=== PATIENT | female | born 1965 | race Caucasian/White ===

== ENCOUNTER 2024-08-26 10:54 | Inpatient (IN) | payer MEDICARE, SELFPAY ==
[2024-08-26 12:15] LABS: ALT (SGPT) 14 U/L (8-55); AST (SGOT) 32 U/L (5-34); Albumin 3.4 g/dL (3.5-5.0); Alkaline Phosphatase 101 U/L (40-110); Anion Gap 11 mmol/L (10-20); BUN (Urea Nitrogen) 13 mg/dL (9.8-20.1); Bilirubin, Total 0.7 mg/dL (0.2-1.2); Calc. Creatinine Clearance 0 mL/min (70-130); Calcium 8.6 mg/dL (7.8-10.44); Carbon Dioxide 20 mmol/L (22-29); Chloride 104 mmol/L (98-107); Estimated GFR 96; Globulin 3.3 g/dL (2.4-3.5); Glucose 126 mg/dL (70-105); Protein, Total 6.7 g/dL (6.0-8.3); Sodium 130 mmol/L (136-145)
[2024-08-26 12:25] LABS: Platelet Adequacy Comment Platelets Decreased; Polychromasia SLIGHT = 2-3 cells HPF (0-2)
[2024-08-26 12:26] LABS: #Basophils Less than 0.03 10x3/uL (0.0-0.2); #Eosinophils Less than 0.03 10x3/uL (0.0-0.7); %Basophils 0.6 % (0.0-1.0); %Eosinophils 0.3 % (0.0-10.0); %Lymphocytes 21.1 % (21.0-51.0); %Monocytes 6.9 % (0.0-10.0); %Neutrophils 70.5 % (42.0-75.0); Hematocrit 25.5 % (36.0-47.0); Hemoglobin 8.6 g/dL (12.0-16.0); Mean Corpuscular HGB CONC 34.3 g/dL (32.0-36.0); Mean Corpuscular Hemoglobin 31.7 pg (27.0-31.0); Mean Corpuscular Volume 92.6 fL (78.0-98.0); Mean Platelet Volume 10.2 fL (7.4-10.4); Platelet Count 69 10x3/uL (130-400); RBC Distribution Width 14.3 % (11.5-14.5); Red Blood Cell (RBC) Count 2.71 mill/uL (4.20-5.40)
[2024-08-26] MEDS ORDERED: Sodium Chloride 0.9% 1,000 ML IV SCH (12:30)
[2024-08-26] MEDS ORDERED: Morphine 2 MG/ML VIAL ONE (12:55)
[2024-08-26] MEDS ORDERED: Ondansetron PF 4 MG/2 ML Vial ONE (12:55)
[2024-08-26] MEDS ORDERED: CEFAZOLIN 2 GM in Sodium Chloride 0.9% 100 ML IVPB SCH (13:45)
[2024-08-26] MEDS: Ketorolac Tromethamine 30 MG (1 mL) VIAL IVP SCH (14:22)
[2024-08-26] MEDS: Acetaminophen 325 MG TAB PO SCH (14:23)
[2024-08-26] MEDS: TETANUS, DIPHTHERIA TOX,ADULT (TDVAX) 0.5 ML VIAL IM ONE (14:24)
[2024-08-26] MEDS: traMADol HCl 50 MG TAB PO PRN (14:29)
[2024-08-26] MEDS ORDERED: Docusate 100 MG CAP PO PRN (15:21)
[2024-08-26 15:51] LABS: Troponin I Less than 0.010 ng/mL (< 0.028)
[2024-08-26] MEDS: traMADol HCl 50 MG TAB PO SCH (17:24)
[2024-08-26] MEDS: Morphine 2 MG/ML VIAL SLOW IVP PRN (17:33)
[2024-08-26 17:50] LABS: Bacteria/HPF None Seen HPF (None Seen); Bilirubin Negative (Negative); Blood, Urine 1+ (Negative); CAUTI Indications for Culture Alt mental st,lethar; Clarity Clear (Clear); Glucose, Urine (Dipstick) Normal (Negative); Ketone, Urine Negative (Negative); Leukocyte Negative Leu/uL (Negative); Nitrite Negative (Negative); Protein, Urine (Dipstick) 10 mg/dL (Neg-Trace); RBC/HPF 21-50 HPF (0-3); Specific Gravity, Urine 1.017 (1.002-1.036); Squamous Epithelial 0-3 HPF (0-3); Urobilinogen Normal mg/dL (Less than 2); WBC/HPF 0-3 HPF (0-3); pH, Urine 7.5 (5.0-9.0)
[2024-08-26 17:57] LABS: Urine Culture Reflex No No
[2024-08-26] MEDS ORDERED: Ketorolac Tromethamine 30 MG (1 mL) VIAL IVP SCH (21:00)
[2024-08-26] MEDS: Famotidine 20 MG TAB PO SCH (21:53)
[2024-08-26] MEDS: Docusate 100 MG CAP PO SCH (21:53)
[2024-08-26] MEDS: Gabapentin 400 MG CAP PO SCH (21:54)
[2024-08-26] MEDS: QUEtiapine 25 MG TAB PO SCH (21:54)
[2024-08-26] MEDS: Atorvastatin Calcium 40 MG TAB PO SCH (21:54)
[2024-08-26] MEDS: Methocarbamol 500 MG TAB PO SCH (21:54)
[2024-08-26] MEDS: Senokot S 8.6-50 MG TAB PO SCH (21:56)
[2024-08-27 05:47] LABS: #Basophils Less than 0.03 10x3/uL (0.0-0.2); %Basophils 0.7 % (0.0-1.0); %Eosinophils 5.9 % (0.0-10.0); %Monocytes 11.2 % (0.0-10.0); %Neutrophils 47.5 % (42.0-75.0); Hematocrit 27.8 % (36.0-47.0); Hemoglobin 9.4 g/dL (12.0-16.0); Mean Corpuscular HGB CONC 33.8 g/dL (32.0-36.0); Mean Corpuscular Hemoglobin 31.8 pg (27.0-31.0); Mean Corpuscular Volume 93.9 fL (78.0-98.0); Mean Platelet Volume 10.8 fL (7.4-10.4); Platelet Count 64 10x3/uL (130-400); RBC Distribution Width 14.6 % (11.5-14.5); Red Blood Cell (RBC) Count 2.96 mill/uL (4.20-5.40)
[2024-08-27 05:52] LABS: INR-International Normal Ratio 1.5; PTT 41.2 sec (22.9-36.1); Prothrombin Time 17.9 sec (12.0-14.7)
[2024-08-27 06:44] LABS: Anion Gap 12 mmol/L (10-20); BUN (Urea Nitrogen) 12 mg/dL (9.8-20.1); Calc. Creatinine Clearance 87 mL/min (70-130); Calcium 8.2 mg/dL (7.8-10.44); Carbon Dioxide 20 mmol/L (22-29); Chloride 105 mmol/L (98-107); Estimated GFR 93; Glucose 103 mg/dL (70-105); Potassium 4.2 mmol/L (3.5-5.1); Sodium 133 mmol/L (136-145)
[2024-08-27] MEDS: Metoprolol Succinate XL 50 MG ER.TAB PO SCH (09:33)
[2024-08-27] MEDS ORDERED: PROPOFOL 20 ML ONE (11:06)
[2024-08-27] MEDS ORDERED: CEFAZOLIN 2 GM VIAL ONE (11:18)
[2024-08-27] MEDS ORDERED: Midazolam HCl 2 mg/2 ml Vial ONE (11:18)
[2024-08-27] MEDS ORDERED: Vancomycin 1 GM/200 ML (FROZEN) BAG ONE (11:18)
[2024-08-27] MEDS ORDERED: Lidocaine 1% PF 5 ML VIAL ONE (11:39)
[2024-08-27] MEDS ORDERED: Rocuronium Bromide 10 MG/ML (10ML VIAL) ONE (11:39)
[2024-08-27] MEDS ORDERED: ePHEDrine Sulfate 50 MG/10 ML VIAL ONE (11:41)
[2024-08-27] MEDS ORDERED: SUGAMMADEX SODIUM 200 MG/2 ML VIAL ONE (12:25)
[2024-08-27] MEDS ORDERED: fentaNYL 50 mcg/mL 1 mL Vial ONE (12:53)
[2024-08-27] MEDS ORDERED: HYDROmorphone 0.5 MG/0.5 ML SYRINGE ONE (13:00)
[2024-08-27] MEDS: CEFAZOLIN 2 GM in Sodium Chloride 0.9% 100 ML IVPB SCH (20:21)
[2024-08-28 05:34] LABS: #Basophils 0.03 10x3/uL (0.0-0.2); %Basophils 0.9 % (0.0-1.0); %Lymphocytes 32.5 % (21.0-51.0); %Monocytes 12.7 % (0.0-10.0); Hematocrit 21.6 % (36.0-47.0); Hemoglobin 7.1 g/dL (12.0-16.0); Mean Corpuscular HGB CONC 32.9 g/dL (32.0-36.0); Mean Corpuscular Hemoglobin 31.1 pg (27.0-31.0); Mean Corpuscular Volume 94.7 fL (78.0-98.0); Mean Platelet Volume 10.2 fL (7.4-10.4); Platelet Count 73 10x3/uL (130-400); RBC Distribution Width 14.8 % (11.5-14.5); Red Blood Cell (RBC) Count 2.28 mill/uL (4.20-5.40)
[2024-08-28] MEDS: HYDROcodone/Acetaminophen 5/325 mg Tablet PO PRN (10:56)
[2024-08-28 16:16] LABS: Hematocrit 22.6 % (36.0-47.0); Hemoglobin 7.7 g/dL (12.0-16.0)
[2024-08-29] MEDS: tiZANidine HCl 4 MG TAB PO SCH (10:55)
[2024-08-29] MEDS: Pantoprazole 40 MG VIAL IVP SCH (12:03)
[2024-08-30 06:32] LABS: #Basophils Less than 0.03 10x3/uL (0.0-0.2); %Basophils 0.6 % (0.0-1.0); %Eosinophils 4.4 % (0.0-10.0); %Lymphocytes 41.1 % (21.0-51.0); %Monocytes 11.1 % (0.0-10.0); %Neutrophils 41.9 % (42.0-75.0); Hematocrit 20.9 % (36.0-47.0); Hemoglobin 6.8 g/dL (12.0-16.0); Mean Corpuscular HGB CONC 32.5 g/dL (32.0-36.0); Mean Corpuscular Hemoglobin 31.1 pg (27.0-31.0); Mean Corpuscular Volume 95.4 fL (78.0-98.0); Mean Platelet Volume 10.7 fL (7.4-10.4); Platelet Count 97 10x3/uL (130-400); RBC Distribution Width 15.1 % (11.5-14.5); Red Blood Cell (RBC) Count 2.19 mill/uL (4.20-5.40)
[2024-08-30] MEDS ORDERED: Bupivacaine PF 0.5% 30 ML VIAL ONE (06:39)
[2024-08-30] MEDS ORDERED: Glucagon 1 MG/ML KIT ONE (06:39)
[2024-08-30] MEDS ORDERED: EPINEPHrine 1 MG/ML VIAL ONE (06:39)
[2024-08-30] MEDS ORDERED: Ondansetron PF 4 MG/2 ML Vial ONE (07:10)
[2024-08-30] MEDS ORDERED: Glycopyrrolate 0.2 MG/ML 5 ML SYRINGE ONE (07:10)
[2024-08-30] MEDS ORDERED: Midazolam HCl 2 mg/2 ml Vial ONE (07:10)
[2024-08-30] MEDS ORDERED: PROPOFOL 20 ML ONE (07:10)
[2024-08-30] MEDS ORDERED: fentaNYL 50 mcg/mL 1 mL Vial ONE (07:10)
[2024-08-30] MEDS ORDERED: Lidocaine 1% PF 5 ML VIAL ONE (07:10)
[2024-08-30] MEDS ORDERED: Rocuronium Bromide 10 MG/ML (10ML VIAL) ONE (07:10)
[2024-08-30] MEDS ORDERED: Dexamethasone 20 MG/5 ML VIAL ONE (07:10)
[2024-08-30] MEDS ORDERED: PHENYLEPHRINE-NS 100 MCG/ML 10 ML SYRINGE ONE (07:10)
[2024-08-30] MEDS ORDERED: ePHEDrine Sulfate 50 MG/10 ML VIAL ONE (07:15)
[2024-08-30] MEDS ORDERED: CEFAZOLIN 2 GM VIAL ONE (07:29)
[2024-08-30] MEDS ORDERED: Etomidate 40 MG (20 mL) VIAL ONE (07:41)
[2024-08-30] MEDS ORDERED: Sodium Chloride 0.9% 100 ML ONE (08:04)
[2024-08-30] MEDS ORDERED: Labetalol HCl 100 MG/20 ML VIAL ONE (08:20)
[2024-08-30] MEDS ORDERED: SUGAMMADEX SODIUM 200 MG/2 ML VIAL ONE (08:23)
[2024-08-30] MEDS ORDERED: Acetaminophen 325 MG TAB PO SCH (09:00)
[2024-08-30] MEDS ORDERED: Enoxaparin 30 MG (0.3 mL) SYRINGE SC SCH (09:00)
[2024-08-30] MEDS ORDERED: Pantoprazole 40 MG VIAL IVP SCH (09:00)
[2024-08-30] MEDS: Acetaminophen 500 MG TAB PO SCH (09:32)
[2024-08-30] MEDS: Enoxaparin 40 MG (0.4 mL) SYRINGE SC SCH (09:35)
[2024-08-30] MEDS: Aspirin 81 mg Enteric Coated Tablet PO SCH (09:36)
[2024-08-30] MEDS: Clopidogrel Bisulfate 75 MG TAB PO SCH (09:36)
[2024-08-30] MEDS: Pantoprazole 40 MG DR.TAB PO SCH ×2 (09:36→12:34)
[2024-08-30] MEDS: Morphine 2 MG/ML VIAL SLOW IVP PRN ×2 (09:44→21:59)
[2024-08-30] MEDS ORDERED: CEFAZOLIN 2 GM in Sodium Chloride 0.9% 100 ML IVPB SCH (16:15)
[2024-08-30 18:49] LABS: #Basophils Less than 0.03 10x3/uL (0.0-0.2); #Eosinophils Less than 0.03 10x3/uL (0.0-0.7); %Basophils 0.4 % (0.0-1.0); %Lymphocytes 16.2 % (21.0-51.0); Hematocrit 22.4 % (36.0-47.0); Hemoglobin 7.4 g/dL (12.0-16.0); Mean Corpuscular Hemoglobin 29.5 pg (27.0-31.0); Mean Corpuscular Volume 89.2 fL (78.0-98.0); Mean Platelet Volume 10.4 fL (7.4-10.4); Platelet Count 117 10x3/uL (130-400); RBC Distribution Width 21.7 % (11.5-14.5); Red Blood Cell (RBC) Count 2.51 mill/uL (4.20-5.40)
[2024-08-30] MEDS: traMADol HCl 50 MG TAB PO PRN (20:13)
[2024-08-30] MEDS: Simethicone Chewable 80 MG TAB PO PRN (21:59)
[2024-08-31] MEDS: Ibuprofen 600 MG TAB PO PRN (04:05)
[2024-08-31] MEDS: Morphine 2 MG/ML VIAL SLOW IVP SCH (04:27)
[2024-08-31 05:50] LABS: #Basophils Less than 0.03 10x3/uL (0.0-0.2); %Basophils 0.3 % (0.0-1.0); %Eosinophils 0.7 % (0.0-10.0); %Lymphocytes 26.1 % (21.0-51.0); %Monocytes 8.5 % (0.0-10.0); %Neutrophils 63.7 % (42.0-75.0); Hematocrit 17.9 % (36.0-47.0); Mean Corpuscular HGB CONC 33.5 g/dL (32.0-36.0); Mean Corpuscular Hemoglobin 30.2 pg (27.0-31.0); Mean Corpuscular Volume 89.9 fL (78.0-98.0); Mean Platelet Volume 10.9 fL (7.4-10.4); Platelet Count 105 10x3/uL (130-400); RBC Distribution Width 21.5 % (11.5-14.5); Red Blood Cell (RBC) Count 1.99 mill/uL (4.20-5.40)
[2024-08-31 06:01] LABS: ALT (SGPT) 8 U/L (8-55); AST (SGOT) 22 U/L (5-34); Albumin 2.8 g/dL (3.5-5.0); Alkaline Phosphatase 90 U/L (40-110); Anion Gap 12 mmol/L (10-20); BUN (Urea Nitrogen) 31 mg/dL (9.8-20.1); Bilirubin, Total 0.6 mg/dL (0.2-1.2); Calc. Creatinine Clearance 85 mL/min (70-130); Carbon Dioxide 19 mmol/L (22-29); Chloride 108 mmol/L (98-107); Estimated GFR 90; Globulin 2.8 g/dL (2.4-3.5); Glucose 146 mg/dL (70-105); Potassium 4.6 mmol/L (3.5-5.1); Protein, Total 5.6 g/dL (6.0-8.3); Sodium 134 mmol/L (136-145)
[2024-08-31] MEDS: oxyCODONE 5 MG TAB PO PRN (09:53)
[2024-08-31] MEDS ORDERED: SUGAMMADEX SODIUM 200 MG/2 ML VIAL ONE (13:24)
[2024-08-31] MEDS ORDERED: Fentanyl 250 MCG/5 ML VIAL ONE (13:24)
[2024-08-31] MEDS ORDERED: PROPOFOL 20 ML ONE (13:24)
[2024-08-31] MEDS ORDERED: Midazolam HCl 2 mg/2 ml Vial ONE (13:24)
[2024-08-31] MEDS ORDERED: Rocuronium Bromide 10 MG/ML (10ML VIAL) ONE (13:24)
[2024-08-31] MEDS ORDERED: Lidocaine 2% PF 5 ML VIAL ONE (13:24)
[2024-08-31] MEDS ORDERED: ePHEDrine Sulfate 50 MG/10 ML VIAL ONE (13:25)
[2024-08-31] MEDS ORDERED: PHENYLEPHRINE-NS 100 MCG/ML 10 ML SYRINGE ONE (13:32)
[2024-08-31] MEDS ORDERED: Vasopressin 20 UNITS/ML VIAL ONE (13:35)
[2024-08-31] MEDS ORDERED: Albumin 5% 250 ML ONE (13:48)
[2024-08-31] MEDS ORDERED: Promethazine HCl 25 MG/ML VIAL IM PRN (13:49)
[2024-08-31] MEDS ORDERED: Ondansetron HCl/PF 4 MG/2 ML Vial IVP PRN (13:49)
[2024-08-31] MEDS ORDERED: HYDROmorphone 2 MG/ML VIAL SLOW IVP PRN (13:49)
[2024-08-31] MEDS ORDERED: SUCCINYLCHOLINE/SOD CL,ISO/PF 200 MG/10 ML SYRINGE FS ONE (14:16)
[2024-08-31] MEDS ORDERED: KETAMINE 100 MG/ML (5ML VIAL) ONE (14:41)
[2024-08-31] MEDS ORDERED: Iopamidol-370 76% 500 ML MDV (1 ML CHARGE) ONE (15:10)
[2024-08-31] MEDS ORDERED: EPINEPHrine 1 MG/ML VIAL ONE (15:23)
[2024-08-31] MEDS ORDERED: Bupivacaine 0.25% HCL 30 ML VIAL ONE (15:23)
[2024-08-31] MEDS ORDERED: Dexamethasone 20 MG/5 ML VIAL ONE (16:18)
[2024-08-31] MEDS ORDERED: Ondansetron PF 4 MG/2 ML Vial ONE (16:18)
[2024-08-31 17:37] LABS: #Basophils 0.04 10x3/uL (0.0-0.2); %Basophils 0.6 % (0.0-1.0); %Eosinophils 1.6 % (0.0-10.0); %Lymphocytes 20.5 % (21.0-51.0); %Monocytes 8.1 % (0.0-10.0); %Neutrophils 67.5 % (42.0-75.0); Hematocrit 20.2 % (36.0-47.0); Mean Corpuscular HGB CONC 34.7 g/dL (32.0-36.0); Mean Corpuscular Hemoglobin 31.1 pg (27.0-31.0); Mean Corpuscular Volume 89.8 fL (78.0-98.0); Mean Platelet Volume 10.6 fL (7.4-10.4); Platelet Count 108 10x3/uL (130-400); RBC Distribution Width 17.2 % (11.5-14.5); Red Blood Cell (RBC) Count 2.25 mill/uL (4.20-5.40)
[2024-08-31 18:10] LABS: Anisocytosis SLIGHT = 6-15 cells HPF (0-5); Band 8 % (5-11); Burr Cells SLIGHT = 2-5 cells HPF (0-1); Lymphocytes 17 % (21-51); Monocytes 4 % (0-10); Neutrophil 69 % (42-75); Ovalocytes SLIGHT = 2-5 cells HPF (0-1); Platelet Adequacy Comment Platelets Decreased; Polychromasia SLIGHT = 2-3 cells HPF (0-2); Smudge Cells 15.8 %; Tear Drops SLIGHT = 2-5 cells HPF (0-1)
[2024-08-31] MEDS ORDERED: Ondansetron PF 4 MG/2 ML Vial IVP PRN (18:36)
[2024-08-31] MEDS: Morphine 2 MG/ML VIAL SLOW IVP PRN (18:41)
[2024-08-31 18:46] LABS: Anion Gap 13 mmol/L (10-20); BUN (Urea Nitrogen) 32 mg/dL (9.8-20.1); Calc. Creatinine Clearance 54 mL/min (70-130); Calcium 7.5 mg/dL (7.8-10.44); Carbon Dioxide 16 mmol/L (22-29); Chloride 110 mmol/L (98-107); Estimated GFR 53; Glucose 146 mg/dL (70-105); Potassium 4.1 mmol/L (3.5-5.1); Sodium 135 mmol/L (136-145)
[2024-08-31 23:20] LABS: Hemoglobin 7.3 g/dL (12.0-16.0); Platelet Count 101 10x3/uL (130-400)
[2024-08-31] MEDS: Albumin 25% 25 GM (100 mL) BOT IVPB SCH (23:53)
[2024-09-01 00:03] LABS: Anion Gap 13 mmol/L (10-20); BUN (Urea Nitrogen) 35 mg/dL (9.8-20.1); Calc. Creatinine Clearance 56 mL/min (70-130); Calcium 7.8 mg/dL (7.8-10.44); Carbon Dioxide 17 mmol/L (22-29); Chloride 108 mmol/L (98-107); Estimated GFR 55; Glucose 222 mg/dL (70-105); Potassium 5.4 mmol/L (3.5-5.1); Sodium 133 mmol/L (136-145)
[2024-09-01] MEDS: Calcium Chloride 13.6 MEQ in Sodium Chloride 0.9% 100 ML IVPB SCH (00:48)
[2024-09-01] MEDS: Sodium Bicarb 50 MEQ/50 ML Abboject 8.4% SYRINGE IVP SCH (03:42)
[2024-09-01 05:04] LABS: #Basophils Less than 0.03 10x3/uL (0.0-0.2); #Eosinophils Less than 0.03 10x3/uL (0.0-0.7); %Basophils 0.2 % (0.0-1.0); %Lymphocytes 14.9 % (21.0-51.0); %Monocytes 7.2 % (0.0-10.0); %Neutrophils 77.1 % (42.0-75.0); Hematocrit 22.2 % (36.0-47.0); Hemoglobin 7.8 g/dL (12.0-16.0); Mean Corpuscular HGB CONC 35.1 g/dL (32.0-36.0); Mean Corpuscular Hemoglobin 30.7 pg (27.0-31.0); Mean Corpuscular Volume 87.4 fL (78.0-98.0); Platelet Count 85 10x3/uL (130-400); RBC Distribution Width 16.7 % (11.5-14.5); Red Blood Cell (RBC) Count 2.54 mill/uL (4.20-5.40)
[2024-09-01 05:23] LABS: ALT (SGPT) 11 U/L (8-55); AST (SGOT) 31 U/L (5-34); Albumin 3.3 g/dL (3.5-5.0); Alkaline Phosphatase 79 U/L (40-110); Anion Gap 11 mmol/L (10-20); BUN (Urea Nitrogen) 31 mg/dL (9.8-20.1); Bilirubin, Total 1.2 mg/dL (0.2-1.2); Calc. Creatinine Clearance 72 mL/min (70-130); Calcium 8.9 mg/dL (7.8-10.44); Carbon Dioxide 22 mmol/L (22-29); Chloride 109 mmol/L (98-107); Estimated GFR 69; Globulin 2.8 g/dL (2.4-3.5); Glucose 181 mg/dL (70-105); Protein, Total 6.1 g/dL (6.0-8.3); Sodium 137 mmol/L (136-145)
[2024-09-01] MEDS: Ferrous Sulfate 325 MG TAB PO SCH (07:55)
[2024-09-01] MEDS: Ascorbic Acid 500 mg Chewable Tablet PO SCH (07:55)
[2024-09-01 12:50] LABS: Hematocrit 21.1 % (36.0-47.0); Hemoglobin 7.4 g/dL (12.0-16.0)
[2024-09-01 13:46] VITALS: BMI 22.9
[2024-09-01] MEDS: Morphine 2 MG/ML VIAL SLOW IVP PRN (14:19)
[2024-09-01 18:52] LABS: Hematocrit 20.3 % (36.0-47.0); Mean Corpuscular HGB CONC 34.5 g/dL (32.0-36.0); Mean Corpuscular Volume 89.8 fL (78.0-98.0); Platelet Count 103 10x3/uL (130-400); RBC Distribution Width 18.1 % (11.5-14.5); Red Blood Cell (RBC) Count 2.26 mill/uL (4.20-5.40)
[2024-09-01 23:36] LABS: Hematocrit 20.6 % (36.0-47.0); Hemoglobin 6.9 g/dL (12.0-16.0); Mean Corpuscular HGB CONC 33.5 g/dL (32.0-36.0); Mean Corpuscular Hemoglobin 30.4 pg (27.0-31.0); Mean Corpuscular Volume 90.7 fL (78.0-98.0); Mean Platelet Volume 10.4 fL (7.4-10.4); Platelet Count 114 10x3/uL (130-400); RBC Distribution Width 18.2 % (11.5-14.5); Red Blood Cell (RBC) Count 2.27 mill/uL (4.20-5.40)
[2024-09-02 08:08] LABS: #Basophils 0.03 10x3/uL (0.0-0.2); %Basophils 0.5 % (0.0-1.0); %Eosinophils 1.7 % (0.0-10.0); %Monocytes 7.5 % (0.0-10.0); %Neutrophils 62.3 % (42.0-75.0); Hematocrit 26.3 % (36.0-47.0); Hemoglobin 8.7 g/dL (12.0-16.0); Mean Corpuscular HGB CONC 33.1 g/dL (32.0-36.0); Mean Corpuscular Hemoglobin 30.4 pg (27.0-31.0); Mean Platelet Volume 10.3 fL (7.4-10.4); Platelet Count 122 10x3/uL (130-400); RBC Distribution Width 18.3 % (11.5-14.5); Red Blood Cell (RBC) Count 2.86 mill/uL (4.20-5.40)
[2024-09-02 08:17] LABS: INR-International Normal Ratio 1.3
[2024-09-02 08:18] LABS: PTT 38.3 sec (22.9-36.1)
[2024-09-03 02:38] LABS: #Basophils 0.03 10x3/uL (0.0-0.2); %Basophils 0.5 % (0.0-1.0); %Eosinophils 2.9 % (0.0-10.0); %Lymphocytes 29.9 % (21.0-51.0); %Monocytes 8.1 % (0.0-10.0); Hematocrit 27.2 % (36.0-47.0); Mean Corpuscular HGB CONC 33.1 g/dL (32.0-36.0); Mean Corpuscular Hemoglobin 30.5 pg (27.0-31.0); Mean Corpuscular Volume 92.2 fL (78.0-98.0); Mean Platelet Volume 9.9 fL (7.4-10.4); Platelet Count 127 10x3/uL (130-400); RBC Distribution Width 18.1 % (11.5-14.5); Red Blood Cell (RBC) Count 2.95 mill/uL (4.20-5.40)
[2024-09-03 02:45] LABS: Anion Gap 10 mmol/L (10-20); BUN (Urea Nitrogen) 19 mg/dL (9.8-20.1); Calc. Creatinine Clearance 94 mL/min (70-130); Calcium 8.7 mg/dL (7.8-10.44); Carbon Dioxide 22 mmol/L (22-29); Chloride 109 mmol/L (98-107); Estimated GFR 91; Glucose 99 mg/dL (70-105); Potassium 4.3 mmol/L (3.5-5.1); Sodium 137 mmol/L (136-145)
[2024-09-03] MEDS: Enoxaparin 30 MG (0.3 mL) SYRINGE SC SCH (09:16)
[2024-09-04 05:38] LABS: #Basophils Less than 0.03 10x3/uL (0.0-0.2); %Basophils 0.4 % (0.0-1.0); %Eosinophils 3.2 % (0.0-10.0); %Lymphocytes 29.9 % (21.0-51.0); %Monocytes 7.2 % (0.0-10.0); Hematocrit 28.5 % (36.0-47.0); Hemoglobin 9.4 g/dL (12.0-16.0); Mean Corpuscular Hemoglobin 30.4 pg (27.0-31.0); Mean Corpuscular Volume 92.2 fL (78.0-98.0); Mean Platelet Volume 9.7 fL (7.4-10.4); Platelet Count 135 10x3/uL (130-400); RBC Distribution Width 17.2 % (11.5-14.5); Red Blood Cell (RBC) Count 3.09 mill/uL (4.20-5.40)
[2024-09-04 05:52] LABS: Anion Gap 11 mmol/L (10-20); BUN (Urea Nitrogen) 17 mg/dL (9.8-20.1); Calc. Creatinine Clearance 107 mL/min (70-130); Calcium 8.7 mg/dL (7.8-10.44); Carbon Dioxide 23 mmol/L (22-29); Chloride 105 mmol/L (98-107); Estimated GFR 101; Glucose 111 mg/dL (70-105); Potassium 4.1 mmol/L (3.5-5.1); Sodium 135 mmol/L (136-145)
[2024-09-04] MEDS: Ondansetron ODT 4 MG TAB PO PRN (10:45)
[2024-09-06 05:53] LABS: #Basophils 0.03 10x3/uL (0.0-0.2); %Basophils 0.6 % (0.0-1.0); %Eosinophils 3.5 % (0.0-10.0); %Monocytes 7.6 % (0.0-10.0); %Neutrophils 60.9 % (42.0-75.0); Hematocrit 27.9 % (36.0-47.0); Hemoglobin 9.3 g/dL (12.0-16.0); Mean Corpuscular HGB CONC 33.3 g/dL (32.0-36.0); Mean Corpuscular Hemoglobin 30.2 pg (27.0-31.0); Mean Corpuscular Volume 90.6 fL (78.0-98.0); Mean Platelet Volume 9.6 fL (7.4-10.4); Platelet Count 122 10x3/uL (130-400); RBC Distribution Width 16.1 % (11.5-14.5); Red Blood Cell (RBC) Count 3.08 mill/uL (4.20-5.40)
[2024-09-06 06:04] LABS: Anion Gap 11 mmol/L (10-20); BUN (Urea Nitrogen) 14 mg/dL (9.8-20.1); Calc. Creatinine Clearance 104 mL/min (70-130); Calcium 8.7 mg/dL (7.8-10.44); Carbon Dioxide 24 mmol/L (22-29); Chloride 107 mmol/L (98-107); Estimated GFR 100; Glucose 106 mg/dL (70-105); Potassium 3.9 mmol/L (3.5-5.1); Sodium 138 mmol/L (136-145)
[2024-09-06] MEDS: Aspirin 81 mg Enteric Coated Tablet PO SCH (08:50)
[2024-09-06] MEDS: Clopidogrel Bisulfate 75 MG TAB PO SCH (08:51)
[2024-09-06] MEDS: Fleet Saline Enema 133 ML BOT FS SCH (11:06)
[2024-09-08] MEDS: Scopolamine 1 mg/72 hour Patch TD SCH (09:38)
[2024-09-08 12:09] LABS: #Basophils 0.05 10x3/uL (0.0-0.2); %Basophils 0.9 % (0.0-1.0); %Eosinophils 2.5 % (0.0-10.0); %Lymphocytes 23.4 % (21.0-51.0); %Monocytes 7.5 % (0.0-10.0); %Neutrophils 65.3 % (42.0-75.0); Hematocrit 28.5 % (36.0-47.0); Hemoglobin 9.7 g/dL (12.0-16.0); Mean Corpuscular Volume 91.1 fL (78.0-98.0); Mean Platelet Volume 10.1 fL (7.4-10.4); Platelet Count 110 10x3/uL (130-400); Red Blood Cell (RBC) Count 3.13 mill/uL (4.20-5.40)
[2024-09-08 12:16] LABS: Anion Gap 10 mmol/L (10-20); BUN (Urea Nitrogen) 15 mg/dL (9.8-20.1); Calc. Creatinine Clearance 104 mL/min (70-130); Carbon Dioxide 26 mmol/L (22-29); Chloride 104 mmol/L (98-107); Estimated GFR 100; Glucose 125 mg/dL (70-105); Potassium 4.2 mmol/L (3.5-5.1); Sodium 136 mmol/L (136-145)
[2024-09-09 11:36] VITALS: TEMP 97.4
[2024-09-09 15:07] VITALS: BP 176/98
== END 2024-09-09 17:54 | disposition home or self-care (01) | DRG 480 ==
LOC: ERS 10:54 → SURG A 14:03 → CCU 08-31 16:37 → SURG A 09-03 10:57
PROVIDERS: ADMIT Surgery; ATTEND Surgery
PROC: 0FT44ZZ Resection of Gallbladder, Percutaneous Endoscopic Approach (ICD-10-PCS; principal; 2024-08-26)
PROC: 0QS604Z Reposition Right Upper Femur with Internal Fixation Device, Open Approach (ICD-10-PCS; 2024-08-26)
PROC: 0D9W4ZZ Drainage of Peritoneum, Percutaneous Endoscopic Approach (ICD-10-PCS; 2024-08-26)
PROC: 30233N1 Transfusion of Nonautologous Red Blood Cells into Peripheral Vein, Percutaneous Approach (ICD-10-PCS; 2024-08-26)
PROC: 30233R1 Transfusion of Nonautologous Platelets into Peripheral Vein, Percutaneous Approach (ICD-10-PCS; 2024-08-26)
PROC: 30233J1 Transfusion of Nonautologous Serum Albumin into Peripheral Vein, Percutaneous Approach (ICD-10-PCS; 2024-08-26)
PROC: 30233M1 Transfusion of Nonautologous Plasma Cryoprecipitate into Peripheral Vein, Percutaneous Approach (ICD-10-PCS; 2024-08-26)
PROC: 3E033XZ Introduction of Vasopressor into Peripheral Vein, Percutaneous Approach (ICD-10-PCS; 2024-08-26)
DX: S72.011A Unspecified intracapsular fracture of right femur, initial encounter for closed fracture (principal); K66.1 Hemoperitoneum; D62 Acute posthemorrhagic anemia; I48.20 Chronic atrial fibrillation, unspecified; E87.1 Hypo-osmolality and hyponatremia; K80.12 Calculus of gallbladder with acute and chronic cholecystitis without obstruction; K91.870 Postprocedural hematoma of a digestive system organ or structure following a digestive system procedure; I10 Essential (primary) hypertension; D69.6 Thrombocytopenia, unspecified; E78.5 Hyperlipidemia, unspecified; F31.9 Bipolar disorder, unspecified; F41.9 Anxiety disorder, unspecified; G83.11 Monoplegia of lower limb affecting right dominant side; I95.9 Hypotension, unspecified; R21 Rash and other nonspecific skin eruption; D53.9 Nutritional anemia, unspecified; Z79.01 Long term (current) use of anticoagulants; Z86.79 Personal history of other diseases of the circulatory system; Z98.890 Other specified postprocedural states; Z79.899 Other long term (current) drug therapy; Z79.02 Long term (current) use of antithrombotics/antiplatelets; Z95.5 Presence of coronary angioplasty implant and graft; Z95.4 Presence of other heart-valve replacement; Z87.890 Personal history of sex reassignment; W18.30XA Fall on same level, unspecified, initial encounter; Y92.009 Unspecified place in unspecified non-institutional (private) residence as the place of occurrence of the external cause
CPT/HCPCS: 36415; 36430; 71045; 71275; 72170; 72192; 74018; 74177; 76705; 80048; 80053; 81001; 82607; 83690; 83880; 84484; 85014; 85018; 85025; 85384; 85610; 85730; 86850; 86900; 86901; 88304; 93005; 93010; 93306; 96374; 96375; 97139; C1713; C1889; G0390; J0171; J0665; J1100; J1171; J1611; J1650; J2250; J2272; J2405; J2470; J2704; J3010; J3370; P9012; P9016; P9035; P9045; P9047; P9059; Q0162; Q9967